=== PATIENT | female | born 1980 | race Caucasian/White ===

== ENCOUNTER 2020-07-10 21:59 | Emergency (ER) | payer BC ==
[~2020-07-10] VITALS: Ht 160 cm; Wt 74.8 kg
[2020-07-11] MEDS ORDERED: OXYC-128 PO (00:22)
[2020-07-11] MEDS ORDERED: ACYC-108 PO (00:22)
[2020-07-11] MEDS ORDERED: ACYCLOVIR 400 MG TABLET PO ONE (00:30)
[2020-07-11] MEDS ORDERED: OXYCODONE/APAP 5-325 MG TABLET PO ONE (00:30)
[2020-07-11] MEDS ORDERED: OXYCODONE/APAP 5-325 MG TABLET ONE (00:38)
[2020-07-11] MEDS ORDERED: ACYCLOVIR 200 MG CAPSULE ONE (00:38)
[2020-07-11 01:17] VITALS: BP 120/90
--- NOTE | 2020-07-11 01:19 | NUR ---
Patient discharged to home in stable condition. Written and verbal after care instructions given. Patient verbalizes understanding of instructions. Stressed follow up or return to ER for worsening s/s. All belongings with patient. Steady gait. Told to not drive. VSS.
== END 2020-07-11 01:20 | disposition home or self-care (01) ==
LOC: ER 21:59
DX: B02.29 Other postherpetic nervous system involvement (principal); G47.9 Sleep disorder, unspecified; Z85.3 Personal history of malignant neoplasm of breast; Z90.12 Acquired absence of left breast and nipple; Z92.21 Personal history of antineoplastic chemotherapy; M54.12 Radiculopathy, cervical region
CPT/HCPCS: A4663